=== PATIENT | male | born 1985 | race Caucasian/White ===

== ENCOUNTER 2018-09-12 18:53 | Inpatient (IN) | payer OTHER ==
[~2018-09-12] VITALS: Ht 157.5 cm; Wt 50.8 kg
--- NOTE | ~2018-09-12 | OP ---
[address] [address] OPERATIVE REPORT Name: VERONICA CABRERA Room: [address] [place] .#: [id number] Admission: 09/12/18 Attend Phys: Gamaliel Cuenca MD Discharge: Date of : 81 Report #: [id number] THIS REPORT FOR: //name// CC: FISH physician/PCP Gamaliel Cuenca DATE OF SERVICE: 09/15/2018 INDICATIONS: The patient is a 33-year-old gentleman who was admitted through the emergency department with severe left-sided flank pain associated with nausea and vomiting. Evaluation with CT scan revealed a large left ureteropelvic junction calculus that measured about 1.3 cm x 6 mm in size. After discussing all treatment options in detail including all risks and benefits of surgical intervention, the patient presents for a cystoscopy, left ureteroscopic stone extraction with holmium laser lithotripsy and stent placement. PREOPERATIVE DIAGNOSIS: Large left ureteral calculus. POSTOPERATIVE DIAGNOSIS: Large left ureteral calculus. PROCEDURE: Cystoscopy, left ureteroscopic stone extraction using holmium laser lithotripsy, left double-J stent placement. SURGEON: René Perry MD ANESTHETIC: General. COMPLICATIONS: None. ESTIMATED BLOOD LOSS: Minimal. DESCRIPTION OF PROCEDURE: The patient was consented for the above procedures, given broad-spectrum IV antibiotics preoperatively. He was given general anesthetic and placed in a dorsal lithotomy position. He was prepped and draped in the usual sterile fashion over the genitalia. The stone was easily seen on fluoroscopy. Cystoscopy was performed with a 22-Sol[place] Islander sheath and 30 degree lens, which revealed a normal anterior urethra, minimal bilobar hyperplasia of the prostate that was only partially obstructing. Examination of the bladder itself revealed no evidence of stones, ulcerations or tumors. The ureteral orifices were easily identified. A 0.035 floppy-tipped guidewire was passed up the left ureter up into the left renal pelvis without difficulty. This went right past the stone without difficulty. Next, a 36 cm 11/13 Solomon Islander ureteral access sheath was passed over the guidewire into the bladder up the ureter without event. With the sheath in place, the trocar and guidewire were removed. Next, the flexible ureteroscope was used [place] [address] OPERATIVE REPORT Name: VERONICA CABRERA Room: [address]#: [id number] Admission: 09/12/18 Attend Phys: Gamaliel Cuenca MD Discharge: Date of : 81 Report #: [id number] difficulty to the level of this where the stone was located. It was impacted at the ureteropelvic junction. Using a 200 micron holmium laser, attempts at fragmenting the stone were performed; however, upon treating the stone with the laser, it migrated back up into the renal pelvis, so I deposited the stone in an upper pole chiara and then using the laser, I was able to fragment the stone into very small passable size pieces. Stone was relatively large, but broke readily and I felt that it broke small enough that the pieces were very passable and I did not choose to try to remove any of these tiny fragments with the basket. Visually, I saw no more evidence of any sizable stones. No stones were seen on fluoroscopy, so I elected to halt the procedure. The ureteroscope was removed leaving the access sheath in place. The guidewire was replaced under fluoroscopic guidance and then the access sheath was removed. Next, the cystoscope was backloaded over the guidewire and a 4.8 x 28 double-J stent was passed over the wire with good curl noted in the renal pelvis and in the bladder after removing the wire. This was confirmed with fluoroscopy and cystoscopy. The bladder was drained. The scope was removed. Lidocaine gel was placed per urethra for local anesthesia. The patient tolerated the procedure very well, was awakened and sent to recovery room in stable condition. We will plan home as soon as agreeable with the primary service and follow up in 7-10 days with a KUB and stent removal. By: [id number] Perry MD /kristi
[~2018-09-12 18:53] MED LIST: ASPIRIN EC325 M1 PO; CLEOCIN HCL150 MG PO; IBUPROFEN 200200 M1 PO; PERCOCET 5-3251 EACH PO
[2018-09-12 19:06] VITALS: BP 135/99
[2018-09-12 19:18] LABS: ABSOLUTE EOSINOPHILS 0.4 thou/uL (0.0-0.7); ABSOLUTE MONOCYTES 1.3 thou/uL (0.0-1.2); ABSOLUTE NEUTROPHILS 8.1 thou/uL (1.6-8.1); BASOPHILS 0.3 %; EOSINOPHILS 2.4 %; HEMOGLOBIN 16.2 gm/dL (14.0-18.0); LYMPHOCYTES 33.8 %; MCH 29.8 pg (26.0-34.0); MCV 90.1 fL (80.0-100.0); MONOCYTES 9.1 %; MPV 8.2 fl. (7.2-11.1); NUCLEATED RBCS 0 /100WBC; PLATELET COUNT* 435 thou/uL (150-400); POLYS 54.4 %; RBC 5.44 mil/uL (4.50-6.00); RDW-CV 12.1 % (10.5-14.5); WBC 14.8 thou/uL (4.0-11.0)
[2018-09-12 19:25] LABS: CALCIUM 9.9 mg/dL (8.5-10.1); CREATININE 1.2 mg/dL (0.6-1.3); POTASSIUM 3.5 mmol/L (3.5-5.1)
[2018-09-12 21:30] LABS: URINE BILIRUBIN NEGATIVE (Negative); URINE BLOOD 3+ (Negative); URINE CLARITY SL CLOUDY; URINE COLOR YELLOW; URINE GLUCOSE-RANDOM NEGATIVE (Negative); URINE KETONES 2+ (Negative); URINE LEUKOCYTES-REFLEX NEGATIVE (Negative); URINE NITRITE-REFLEX NEGATIVE (Negative); URINE PROTEIN TRACE (Negative); URINE SPECIFIC GRAVITY <= 1.005 (1.005-1.030); URINE UROBILINOGEN 0.2 E.U./dl (0.2-1.0)
[2018-09-12 21:37] LABS: MUCUS None Seen strn/LPF (None Seen); SQUAMOUS 0-3 Few /LPF (0-3); URINE RBC >20 Many /HPF (0-2)
[2018-09-12 21:38] LABS: CASTS None Seen /LPF (None Seen); CRYSTALS None Seen /LPF (None Seen); URINE WBC-REFLEX None Seen /HPF (0-5)
[2018-09-12 21:39] LABS: BACTERIA-REFLEX None Seen /HPF (None Seen)
[2018-09-12 23:56] VITALS: BP 127/83
[2018-09-13 04:00] VITALS: BP 120/70
--- NOTE | 2018-09-13 07:06 | NUR ---
THIS NURSE RECEIVED REPORT FROM SNOAL VIRGEN. THIS NURSE TO ASSUME PT CARE AT THIS TIME.
[2018-09-13 07:30] VITALS: BP 136/77
[2018-09-13 08:49] LABS: ABSOLUTE BASOPHILS 0.1 thou/uL (0.0-0.2); ABSOLUTE EOSINOPHILS 0.1 thou/uL (0.0-0.7); ABSOLUTE LYMPHOCYTES 2.2 thou/uL (0.8-5.3); ABSOLUTE NEUTROPHILS 8.9 thou/uL (1.6-8.1); BASOPHILS 0.6 %; EOSINOPHILS 0.9 %; HEMOGLOBIN 14.8 gm/dL (14.0-18.0); LYMPHOCYTES 18.3 %; MCH 31.1 pg (26.0-34.0); MCHC 34.5 g/dL (28.0-37.0); MCV 90.3 fL (80.0-100.0); MPV 8.1 fl. (7.2-11.1); NUCLEATED RBCS 0 /100WBC; POLYS 72.2 %; RBC 4.77 mil/uL (4.50-6.00); RDW-CV 12.3 % (10.5-14.5); WBC 12.3 thou/uL (4.0-11.0)
[2018-09-13 08:58] LABS: PLATELET COUNT* 351 thou/uL (150-400)
[2018-09-13 09:36] LABS: CALCIUM 8.9 mg/dL (8.5-10.1); CREATININE 0.9 mg/dL (0.6-1.3); MAGNESIUM 2.1 mg/dL (1.8-2.4); POTASSIUM 3.6 mmol/L (3.5-5.1)
--- NOTE | 2018-09-13 12:40 | NUR ---
NURSE IN ROOM. PT EXPRESSES CONCERN ABOUT NOT SEEING UROLOGIST, WONDERING IF PROCEDURE WOULD BE PERFORMED TODAY. IF NO PROCEDURE TO BE PERFORMED, PT WONDERING IF HE COULD GET SOMETHING TO EAT. HAS NOT ATE FOR 24 HOURS, REPORTED BY PT. NURSE TO CALL UROLOGY AND CHECK.
--- NOTE | 2018-09-13 13:05 | NUR ---
NURSE IN PT ROOM, CALLING UROLOGY. TRIAGE NURSE AT UROLOGY CLINIC STATED SHE WAS UNSURE IF CONSULT FOR PT WENT THROUGH. THIS NURSE STATED CONSULT WAS DONE AT 0656 THIS AM. TRIAGE NURSE STATED SHE WOULD TAKE PT INFORMATION AND NOTIFY THE UROLOGIST HAND I TUBE BENDER.
--- NOTE | 2018-09-13 13:47 | NUR ---
THIS NURSE STILL HAS NOT HEARD BACK FROM UROLOGIST TRIAGE NURSE. LIDIA VALLE MADE AWARE AND TO CALL UROLOGIST CLINIC. PT RECEIVED INPATIENT BED AND IS BEING TAKEN TO ROOM BY SONAL HAM. SONAL ROWLEY TO BE PT INPATIENT NURSE. HALLEY AWARE OF THIS NURSE CALLING UROLOGY AND NOT HEARING BACK. PT MADE AWARE OF ALL HAPPENINGS; STATED APPRECIATION.
[2018-09-13 13:50] VITALS: BP 125/85
[2018-09-13 19:31] VITALS: BP 130/87
--- NOTE | 2018-09-13 20:03 | NUR ---
PATIENT ARRIVED TO UNIT AT APPROX 1330. ADMISSION HISTORY AND ASSESSMENT COMPLETED AND CHARTED. VSS ON ROOM AIR. COMPLAINTS OF PAIN MANAGED WITH A COMBINATION OF TORADOL, FENTANYL, AND HYDROCODONE. PATIENT FEELING NAUSEOUS AND GIVEN ZOFRAN X2, AFTER SECOND DOSE PATIENT CALLED OUT ASKING FOR SOMETHING ELSE TO HELP WITH NAUSEA. DR CHURCHILL PAGED AND GIVEN ORDER FOR PROMETHAZINE. PATIENT IS UP AD MIKE IN THE ROOM. CALL LIGHT IN REACH AND USES NEEDED. HOURLY ROUNDS COMPLETED. WILL CONTINUE TO MONITOR.
[2018-09-13 21:36] VITALS: BP 127/68
--- NOTE | 2018-09-14 02:52 | NUR ---
ASSUMED CARE AT START OF SHIFT PT HAVE FAMILY IN ROOM APPEARS COMFORTABLE AT THAT TIME , LATER PT MEDICATED FOR FLANK PAIN. PT RESTED WELL THROGUHOUT HOURLY ROUNDS WILL CONTINUE WITH CURRENT PLAN OF CARE AND WILL REPORT CHANGES PT NPO FOR AM PROCEDURE.
[2018-09-14 03:36] LABS: ABSOLUTE BASOPHILS 0.1 thou/uL (0.0-0.2); ABSOLUTE EOSINOPHILS 0.2 thou/uL (0.0-0.7); ABSOLUTE LYMPHOCYTES 3.7 thou/uL (0.8-5.3); ABSOLUTE MONOCYTES 1.1 thou/uL (0.0-1.2); ABSOLUTE NEUTROPHILS 6.5 thou/uL (1.6-8.1); EOSINOPHILS 2.1 %; HEMATOCRIT 41.1 % (42.0-52.0); HEMOGLOBIN 13.5 gm/dL (14.0-18.0); LYMPHOCYTES 31.9 %; MCH 29.7 pg (26.0-34.0); MCHC 32.8 g/dL (28.0-37.0); MCV 90.7 fL (80.0-100.0); MONOCYTES 9.5 %; MPV 8.2 fl. (7.2-11.1); NUCLEATED RBCS 0 /100WBC; PLATELET COUNT* 322 thou/uL (150-400); POLYS 55.5 %; RBC 4.53 mil/uL (4.50-6.00); RDW-CV 12.5 % (10.5-14.5); WBC 11.7 thou/uL (4.0-11.0)
[2018-09-14 04:03] LABS: CALCIUM 8.7 mg/dL (8.5-10.1); POTASSIUM 4.1 mmol/L (3.5-5.1)
[2018-09-14 08:00] VITALS: BP 122/88
[2018-09-14] MEDS ORDERED: DOK PLUS TABLE1 EACH PO (09:53)
[2018-09-14] MEDS ORDERED: FLOMAX0.4 MG PO (09:53)
[2018-09-14] MEDS ORDERED: HYDROCODON-ACE1 EAC7 PO (09:53)
--- NOTE | 2018-09-14 12:20 | NUR ---
MET WITH PT TO DISCUSS HOME SITUATION/DC PLANNING. PT LIVES WITH FRIEND, WORKS AND IS INDEPENDENT AND ACTIVE. USES NO EQUIPMENT. PT DOESN'T HAVE PCP OR INSURANCE. [employer] INFO, ERN AND SAFETY [facility] INFO GIVEN. PT CONCERNED ABOUT SURGERY, NURSE CALLING URO OFFICE TO DISCUSS PT'S CONCERNS AND WILL ADDRESS. DID TALK WITH PT ABOUT GOING TO C IN FUTURE IF NEEDS ARISE THAT CANNOT BE MANAGED. PT APPRECIATIVE OF ASSIST
[2018-09-14 15:09] VITALS: BP 122/88
[2018-09-14 16:52] VITALS: BP 138/88
[2018-09-14 19:45] VITALS: BP 141/88
--- NOTE | 2018-09-15 04:25 | NUR ---
PT ALERT AND ORIENTED. VITALS STABLE. MEDS GIVEN ORDERED. PAIN WELL CONTROLLED WITH HYDROCODONE. NO NAUSEA OR VOMITING. NPO AT MIDNIGHT FOR PROCEDURE TODAY. HOURLY ROUNDING COMPLETED. WILL CONTINUE TO MONITOR.
[2018-09-15 04:27] LABS: ABSOLUTE BASOPHILS 0.1 thou/uL (0.0-0.2); ABSOLUTE EOSINOPHILS 0.4 thou/uL (0.0-0.7); ABSOLUTE LYMPHOCYTES 4.3 thou/uL (0.8-5.3); ABSOLUTE MONOCYTES 1.2 thou/uL (0.0-1.2); ABSOLUTE NEUTROPHILS 5.4 thou/uL (1.6-8.1); BASOPHILS 1.2 %; EOSINOPHILS 3.8 %; HEMATOCRIT 45.4 % (42.0-52.0); LYMPHOCYTES 37.6 %; MCH 30.2 pg (26.0-34.0); MCHC 33.1 g/dL (28.0-37.0); MCV 91.5 fL (80.0-100.0); MONOCYTES 10.8 %; MPV 8.8 fl. (7.2-11.1); NUCLEATED RBCS 0 /100WBC; PLATELET COUNT* 349 thou/uL (150-400); POLYS 46.6 %; RBC 4.96 mil/uL (4.50-6.00); RDW-CV 12.5 % (10.5-14.5); WBC 11.5 thou/uL (4.0-11.0)
[2018-09-15 04:32] LABS: CALCIUM 9.5 mg/dL (8.5-10.1); CREATININE 0.9 mg/dL (0.6-1.3); POTASSIUM 3.9 mmol/L (3.5-5.1)
[2018-09-15 07:50] VITALS: BP 144/100
[2018-09-15] MEDS ORDERED: CIPRO500 MG PO (10:18)
[2018-09-15 11:39] VITALS: BP 122/88
[2018-09-15 15:22] VITALS: BP 122/88
--- NOTE | 2018-09-15 18:08 | NUR ---
ASSUMED CARE OF PATIENT AT APPROX 0730. ALERT AND ORIENTRED X4. ASSESSMENT COMPLETED AND CHARTED. VSS ON ROOM AIR. COMPLAINTS OF PAIN BUT REFUSED PAINN MEDICATION BECAUSE "I DO NOT WANT TO BE CHARGED EVEN MORE MONEY FOR PAIN MEDICINE." PATIENT VERY UPSET THAT HIS PROCEDURE HAD BEEN PUSHED BACK DUE TO EMERGENT SURGERIES THAT TOOK PRIORITY. PATIENT ASKED TO SPEAK TO THE STRINGER UP SOLDERING MACHINE ABOUT HAVING TO WAIT TO HAVE HIS PROCEDURE. PATIENT TAKEN TO PACU AT 1145 AND RETURNED AT 1650 WITH NO COMPLAINTS OF PAIN AND WANTING TO EAT. PATIENT FAMILY LEFT TO GET HIM FOOD, HE TOLERATED HIS MEAL AND VOIDED WITHOUT ISSUES. PATIENT DISCHARGED AT 1800 WITH ALL PERSONAL INFORMATION, PRERSCRIPTIONS AND DISCHARGE INFORMATION.
== END 2018-09-15 18:00 | disposition home or self-care (01) | DRG 661 ==
LOC: M.ERS 18:53 → M.TBA-ER 21:23 → M.ORTHSURG 09-13 13:33
PROVIDERS: Nurse Practitioner Psychiatric/Mental Health; ADMIT Family Medicine
PROC: 0T778DZ Dilation of Left Ureter with Intraluminal Device, Via Natural or Artificial Opening Endoscopic (ICD-10-PCS; principal; 2018-09-15)
PROC: BT1F1ZZ Fluoroscopy of Left Kidney, Ureter and Bladder using Low Osmolar Contrast (ICD-10-PCS; principal; 2018-09-15)
PROC: 0TC78ZZ Extirpation of Matter from Left Ureter, Via Natural or Artificial Opening Endoscopic (ICD-10-PCS; principal; 2018-09-15)
DX: N13.2 Hydronephrosis with renal and ureteral calculous obstruction (principal); N18.2 Chronic kidney disease, stage 2 (mild); N17.9 Acute kidney failure, unspecified; F17.220 Nicotine dependence, chewing tobacco, uncomplicated; Z79.899 Other long term (current) drug therapy; Z88.0 Allergy status to penicillin; Z83.3 Family history of diabetes mellitus; Z84.1 Family history of disorders of kidney and ureter